=== PATIENT | male | born 1990 | race Two or more races ===

== ENCOUNTER 2017-11-04 10:01 | Emergency (ER) | payer OTHER ==
[~2017-11-04] VITALS: Ht 200.7 cm; Wt 72.6 kg
[2017-11-04] MEDS ORDERED: IBUPROFEN 600 MG TAB PO STA (10:34)
[2017-11-04] MEDS ORDERED: ACETAMINOPHEN 325 MG TAB PO ONE (10:45)
[2017-11-04] MEDS ORDERED: SODIUM CHLORIDE 0.9% 1000ML 1,000 ML IV ONE ×2 (10:45→11:00)
[2017-11-04] MEDS ORDERED: POTASSIUM CHLORIDE 20 MEQ TAB CR PO STA (10:59)
[2017-11-04 12:57] VITALS: BP 128/69
== END 2017-11-04 13:01 | disposition home or self-care (01) ==
LOC: FSED 10:01
DX: R50.9 Fever, unspecified (principal); E87.6 Hypokalemia; R31.9 Hematuria, unspecified; B34.9 Viral infection, unspecified; K52.9 Noninfective gastroenteritis and colitis, unspecified
CPT/HCPCS: 87400; 99283; J7030